=== PATIENT | male | born 1945 | race Caucasian/White ===

== ENCOUNTER 2017-03-26 20:35 | Inpatient (IN) | payer OTHER, MEDICARE ==
[~2017-03-26] VITALS: Ht 182.9 cm; Wt 76.2 kg
[2017-03-26 20:44] VITALS: BP 135/82
--- NOTE | 2017-03-26 20:55 | NUR ---
TO ER BED 11
--- NOTE | 2017-03-26 21:29 | NUR ---
71/M REFERRED BY ONCOLOGIST FOR BLOOD TRANSFUSION, C/O DIZZINESS, LIGHTHEADEDNESS, GENERALIZED WEAKNESS, SOB WITH ACTIVITY. AAOX4, RR 18 EVEN AND UNLABORED, LUNG SOUNDS CLEAR ALL QUADRANTS, BS ACTIVE X4, DENIES PAIN, N/V. PMH METASTATIC PROSTATE CA. NKA.
[2017-03-26 21:50] LABS: BASOPHILS # (AUTO) 0.1 K/uL (0.00-0.22); BASOPHILS % (AUTO) 2.3 % (0.0-2.0); EOSINOPHILS % (AUTO) 0.2 % (0.0-4.0); HEMATOCRIT 23.1 % (36-52); HEMOGLOBIN 7.6 g/dL (12.0-18.0); LYMPHOCYTES # (AUTO) 1.1 K/uL (2.0-11.5); LYMPHOCYTES % (AUTO) 37.7 % (20.5-51.1); MEAN CORPUSCULAR HEMOGLOBIN 31 pg (27-31); MEAN CORPUSCULAR HGB CONC 33 g/dL (33-37); MEAN CORPUSCULAR VOLUME 95 fL (80-94); MONOCYTES # (AUTO) 0.3 K/uL (0.8-1.0); MONOCYTES % (AUTO) 9.1 % (1.7-9.3); NEUTROPHILS # (AUTO) 1.3 K/uL (1.8-7.7); NEUTROPHILS % (AUTO) 50.7 % (42.2-75.2); PLATELET COUNT (AUTO) 155 K/uL (140-450); RED BLOOD CELL COUNT(AUTO) 2.43 MIL/uL (4.20-6.10); RED CELL DISTRIBUTION WIDTH 16.7 % (11.6-13.7); WHITE BLOOD COUNT (AUTO) 2.8 K/uL (4.8-10.8)
[2017-03-26 21:58] LABS: ANION GAP 15.7 (8-16); CARBON DIOXIDE 24.5 mmol/L (21-32); POTASSIUM 5.2 mmol/L (3.5-5.1)
[2017-03-26 22:04] LABS: ALBUMIN 2.9 g/dL (3.4-5.0); TOTAL BILIRUBIN 0.2 mg/dL (0.0-1.0)
--- NOTE | 2017-03-26 23:00 | NUR ---
PT SITTING IN BED, READING. AT BEDSIDE. VSS, WILL CONTINUE TO MONITOR
[2017-03-26] MEDS ORDERED: SODIUM POLYSTYRENE 15 GM/60 ML UDBTL PO ONE (23:35)
[2017-03-26] MEDS ORDERED: ACETAMINOPHEN 325 MG TAB PO PRN (23:55)
[2017-03-26] MEDS ORDERED: HYDROcodone/APAP 7.5/325 MG 1 TAB PO PRN (23:55)
[2017-03-26] MEDS ORDERED: ONDANSETRON 4 MG/2 ML VIAL IVP PRN (23:55)
[2017-03-27] VITALS (10 sets, daily range): BP systolic 85–130; BP diastolic 62–83
--- NOTE | 2017-03-27 | NUR ---
R UPPER CHEST PORTACATH ACCESSED AND APPLIED WITH CVP DRESSING USING STERILE TECHNIQUE, BLOOD RETURN ADEQUATE, FLUSHES WELL, PT TOLERATED WELL.
[2017-03-27 00:20] LABS: PROTHROMBIN TIME 10.4 secs (10.8-13.4)
--- NOTE | 2017-03-27 00:26 | NUR ---
Patient will be admitted to care of DR SIEGEL. Admited to TELE. Will go to room 107B. Belongings list completed. Report to EDY BAIRD.
[2017-03-27] MEDS ORDERED: HYDROmorphone 2 MG TAB PO PRN (00:30)
[2017-03-27 00:31] LABS: CHOL/HDL RATIO 3.3 (1-4.5); FREE T4 (FREE THYROXINE) 0.91 ng/dL (0.76-1.46); MAGNESIUM 1.6 mg/dL (1.8-2.4); PHOSPHORUS 2.7 mg/dL (2.5-4.9); THYROID STIMULATING HORMONE 0.6 uIU/mL (0.34-3.74)
--- NOTE | 2017-03-27 00:35 | NUR ---
ADMITTED THIS 71 YEAR OLD MALE FROM ER PER NAKUL WITH DX OF SYMPTOMATIC ANEMIA, AMBULATED TO BED WITH STANDBY ASSIST, SLIGHT SOB ON EXERTION, MILD WEAKNESS NOTED, ASSESSMENT DONE, VITAL SIGNS STABLE, DENIES ANY PAIN, WITH RT CHEST MEDIPORT, ACCESS BY ER NURSE, DRESSING DRY AND INTACT, PT INCONTINENT DUE TO HX OF PROSTATE CANCER, DIAPER IN PLACE, ORIENTED TO ROOM AND CALL LIGHT, PLAN OF CARE DISCUSSED WITH PT AND AT BEDSIDE, CALL LIGHT WITHIN REACH.
--- NOTE | 2017-03-27 00:50 | NUR ---
DR SARMIENTO ORDERED 15 GM OF KAYEXALATE, MADE AWARE THAT ER GAVE 30GM OF KAYEXALATE ALREADY AT 0004, HE SAID NOT TO GIVE THE 15GM OF KAYEXALATE.
[2017-03-27] MEDS ORDERED: SODIUM POLYSTYRENE 15 GM/60 ML UDBTL PO ONE (01:00)
--- NOTE | 2017-03-27 02:27 | NUR ---
VITAL SIGNS STABLE, 1 UNIT PRBC STARTED WITH EDUCATION PROVIDED, MONITORED CLOSELY FOR ANY REACTION, VITAL SIGNS CHECK PER PROTOCOL, PT IN NO DISTRESS AT THIS TIME, CALL LIGHT WITHIN REACH.
[2017-03-27] MEDS: NACL 0.9% 1,000 ML IV SCH ×2 (02:46→19:53)
--- NOTE | 2017-03-27 04:32 | NUR ---
BLOOD TRANSFUSION DONE, NO REACTION NOTED, VITAL SIGNS STABLE, WILL RESUME IVF, DENIES ANY PAIN, MONITORED CLOSELY.
--- NOTE | 2017-03-27 05:41 | NUR ---
DR SARMIENTO MADE AWARE THAT PT HAD NO BLADDER CONTROL DUE TO PROSTATE CANCER THUS UNABLE TO COLLECT URINE AT THIS TIME, HE SAID IT'S NADIA, MADE AWARE THAT THERE IS NO REPEAT CBC ORDERED AFTER BLOOD TRANSFUSION, HE WILL PUT AN ORDER, ASK PT IF HE NEEDS A DIAPER CHANGE, HE SAID NOT RIGHT NOW, HE WILL CALL IF HE NEEDS A DIAPER CHANGE, MONITORED CLOSELY.
--- NOTE | 2017-03-27 06:44 | NUR ---
PT EASILY AROUSABLE, AM LABS DRAWN VIA RT CHEST MEDIPORT WITH GOOD BLOOD RETURN, RESUMED IVF OF NS AT 50ML/H, DENIES ANY PAIN, NO SOB NOTED, MONITORED CLOSELY.
[2017-03-27 06:49] LABS: BASOPHILS # (AUTO) 0.1 K/uL (0.00-0.22); BASOPHILS % (AUTO) 4.9 % (0.0-2.0); EOSINOPHILS % (AUTO) 0.4 % (0.0-4.0); HEMATOCRIT 22.5 % (36-52); HEMOGLOBIN 7.5 g/dL (12.0-18.0); LYMPHOCYTES # (AUTO) 0.8 K/uL (2.0-11.5); LYMPHOCYTES % (AUTO) 34.2 % (20.5-51.1); MEAN CORPUSCULAR HEMOGLOBIN 31 pg (27-31); MEAN CORPUSCULAR HGB CONC 33 g/dL (33-37); MEAN CORPUSCULAR VOLUME 94 fL (80-94); MONOCYTES # (AUTO) 0.2 K/uL (0.8-1.0); MONOCYTES % (AUTO) 7.3 % (1.7-9.3); NEUTROPHILS # (AUTO) 1.4 K/uL (1.8-7.7); NEUTROPHILS % (AUTO) 53.2 % (42.2-75.2); PLATELET COUNT (AUTO) 141 K/uL (140-450); RED CELL DISTRIBUTION WIDTH 16.6 % (11.6-13.7); WHITE BLOOD COUNT (AUTO) 2.5 K/uL (4.8-10.8)
[2017-03-27 07:04] LABS: ANION GAP 12.1 (8-16); CARBON DIOXIDE 25.7 mmol/L (21-32); CREATININE 1.6 mg/dL (0.7-1.3); POTASSIUM 3.8 mmol/L (3.5-5.1)
--- NOTE | 2017-03-27 07:25 | NUR ---
PT SLEEPING, NO SIGNS OF DISTRESS, REPORT GIVEN TO RN MARTHA FOR CONTINUITY OF CARE.
--- NOTE | 2017-03-27 07:30 | NUR ---
RECEIVED PT ON BED AAOX4. NO SOB NOTED. NO C/O PAIN AT THIS TIME. WITH RT UPPER CHEST MEDIPORT, PATENT AND INTACT. CHEST CLEAR, DIMINISHED AIR ENTRY TO THE BASES. ABDOMEN SOFT, BOWEL SOUNDS PRESENT. INSTRUCTED PT TO CALL FOR ASSISTANCE, CALL LIGHT WITHIN REACH. PT VERBALIZED UNDERSTANDING.
--- NOTE | 2017-03-27 08:30 | NUR ---
ASSISTED PT TO THE BATHROOM WITH MINIMAL HELP. ACTIVITY TOLERATED WELL BY, NO DIZZINESS PER PT. HAD 1 LARGE BM. PT IS INCONTINENT OF BOWEL AND BLADDER (HX PROSTATE CA) BUT PREFERRED TO WEAR PULL UPS FROM HOME, PT WAS ABLE TO CLEAN SELF INSIDE THE BATHROOM.
--- NOTE | 2017-03-27 08:55 | NUR ---
PATIENT HAS BEEN SCREENED AND CATEGORIZED MODERATE NUTRITION RISK. PATIENT WILL BE SEEN WITHIN 3-5 DAYS OF ADMISSION. 03/28/17-03/30/[address]
[2017-03-27] MEDS: DOCUSATE SODIUM 100 MG GELCAP PO SCH ×2 (09:00→20:34)
--- NOTE | 2017-03-27 09:15 | NUR ---
PT WHEELED TO CT DEPT IN STABLE CONDITION FOR CT HEAD W/O CONTRAST.
--- NOTE | 2017-03-27 09:30 | NUR ---
PT BACK FROM CT DEPT IN STABLE CONDITION.
[2017-03-27] MEDS: MAGNESIUM OXIDE 400 MG TAB PO SCH ×2 (09:57→20:19)
--- NOTE | 2017-03-27 10:00 | NUR ---
PT SIGNED RELEASE OF INFO FROM [facility], PT VERBALIZED UNDERSTANDING.
--- NOTE | 2017-03-27 10:30 | NUR ---
[facility] FAXED BACK PT'S PREVIOUS RECORDS. DR. MERCER NOTIFIED.
[2017-03-27 12:26] LABS: HEMATOCRIT 25.3 % (36-52); HEMOGLOBIN 8.2 g/dL (12.0-18.0)
[2017-03-27] MEDS ORDERED: FERRIC GLUCONATE 125 MG in NACL 0.9% 100 ML IV SCH (14:00)
--- NOTE | 2017-03-27 15:35 | NUR ---
PHYSICAL THERAPY ON GOING AT THE BEDSIDE.
--- NOTE | 2017-03-27 19:09 | NUR ---
PT AWAKE, READING BOOK. NO SOB NOTED. NO SIGNS OF PAIN AT THIS TIME. ENDORSED TO NEXT SHIFT NURSE FOR CONTINUITY OF CARE.
--- NOTE | 2017-03-27 19:10 | NUR ---
RECEIVED PT SITTING ON BED READING A BOOK, ORTHOSTATIC VITAL SIGNS TAKEN, VITAL SIGNS STABLE, DENIES ANY PAIN, NO SOB NOTED, RT MEDIPORT ACCESS HEPLOCK, DRESSING DRY AND INTACT, PLAN OF CARE DISCUSS, SAFETY MEASURES IN PLACE, CALL LIGHT WITHIN REACH.
--- NOTE | 2017-03-27 20:30 | NUR ---
DUE MAG-OX TAKEN WITH EDUCATION PROVIDED, PT AMBULATORY TO THE SINK WITH STANDBY ASSIST, ALL NEEDS ATTENDED.
[2017-03-28] VITALS: BP 99/65
--- NOTE | 2017-03-28 | NUR ---
PT SLEEPING, EASILY AROUSABLE, VITAL SIGNS STABLE, DENIES ANY PAIN, NO DISTRESS NOTED, CONTINUE TO MONITOR CLOSELY.
[2017-03-28 04:00] VITALS: BP 101/70
--- NOTE | 2017-03-28 04:20 | NUR ---
PT SLEEPING, EASILY AROUSABLE, VITAL SIGNS STABLE, DENIES ANY PAIN, PT INCONTINENT OF URINE DUE TO HX OF PROSTATE CA, PT AMBULATED TO BR AND ABLE TO CHANGE DIAPER INDEPENDENTLY, NO BM AT THIS TIME, PT VERBALIZED HE FEELS THAT HE IS STARTING TO BE EXPOSED TO IN HOSPITAL CONDITIONS AND HE WANTS TO LEAVE AFTER ECHOCARDIOGRAM IS DONE, WILL ENDORSE TO AM NURSE.
--- NOTE | 2017-03-28 05:29 | NUR ---
PT AWAKE READING A BOOK, A LABS DRAW VIA RT CHEST MEDIPORT WITH GOOD BLOOD RETURN, DENIES PAIN, MONITORED CLOSELY.
--- NOTE | 2017-03-28 07:25 | NUR ---
PT SLEEPING, NO SIGNS OF DISTRESS, REPORT GIVEN TO EDY KAHN FOR CONTINUITY OF CARE.
[2017-03-28 07:30] LABS: HEMATOCRIT 24.5 % (36-52); HEMOGLOBIN 8.1 g/dL (12.0-18.0); MEAN CORPUSCULAR HEMOGLOBIN 31 pg (27-31); MEAN CORPUSCULAR HGB CONC 33 g/dL (33-37); MEAN CORPUSCULAR VOLUME 95 fL (80-94); PLATELET COUNT (AUTO) 163 K/uL (140-450); RED BLOOD CELL COUNT(AUTO) 2.59 MIL/uL (4.20-6.10); RED CELL DISTRIBUTION WIDTH 17.2 % (11.6-13.7); WHITE BLOOD COUNT (AUTO) 3.4 K/uL (4.8-10.8)
--- NOTE | 2017-03-28 07:30 | NUR ---
RECEIVED PT REPORT FROM [employer] SPECIALIST NURSE. PT IS AAOX4. DENIES ANY PAIN, NO SOB NOTED, RT CHEST MEDIPORT ACCESS HEPL[place], DRESSING DRY AND INTACT. MADE PT AWARE OF STOOL SAMPLE NEEDED FOR OCCULT BLOOD TEST. PT STATED HE HAD BM YESTERDAY AND HE PROBABLY WON'T GO TODAY. PT STATED HIS STOOL IS NORMAL BROWN AND NORMAL TEXTURE. PLAN OF CARE DISCUSSED, SAFETY MEASURES IN PLACE, CALL LIGHT WITHIN REACH.
[2017-03-28 08:00] VITALS: BP_SYST 103; BP_SYST 120; BP_SYST 95; BP_DIAS 64; BP_DIAS 68; BP_DIAS 78
[2017-03-28 08:18] LABS: EOSINOPHILS % (MANUAL) 2 % (0-4); LYMPHOCYTES % (MANUAL) 55 % (20-46); MONOCYTES % (MANUAL) 9 % (5-12)
[2017-03-28 08:46] LABS: MAGNESIUM 1.7 mg/dL (1.8-2.4); PHOSPHORUS 3.2 mg/dL (2.5-4.9)
[2017-03-28 08:56] LABS: CARBON DIOXIDE 26.8 mmol/L (21-32); CREATININE 1.7 mg/dL (0.7-1.3); POTASSIUM 3.8 mmol/L (3.5-5.1)
[2017-03-28] MEDS: DOCUSATE SODIUM 100 MG GELCAP PO SCH (09:00)
[2017-03-28] MEDS: MAGNESIUM OXIDE 400 MG TAB PO SCH (09:00)
--- NOTE | 2017-03-28 09:15 | NUR ---
CALLED [facility] DEPT ASKING ABOUT TIME FOR ECHO, MESSAGE LEFT AND WAITING FOR CALL BACK.
--- NOTE | 2017-03-28 09:50 | NUR ---
PT REFUSED ECHO AND WANTS TO GO HOME PATTY. MADE DR MERCER AWARE.
--- NOTE | 2017-03-28 11:15 | NUR ---
PT DISCHARGED PER MD ORDER. MEDIPORT DRESSING REMOVED, DEVICE DISCONNECTED. DENIES ANY PAIN, NAUSEA, OR DIZZINESS. DISCHARGE INSTRUCTIONS GIVEN. MADE PT AWARE THAT HE CAN TALK TO HIS PCP ABOUT DOING ECHO AN OUTPATIENT. PT VERBALIZED UNDERSTANDING. PT LEFT WITH ALL HIS BELONGINGS AND IN STABLE CONDITION.
== END 2017-03-28 11:15 | disposition home or self-care (01) | DRG 808 ==
LOC: MED 20:35 → MTU 23:53
PROVIDERS: ADMIT Family Medicine; ATTEND Family Medicine
PROC: 30233N1 Transfusion of Nonautologous Red Blood Cells into Peripheral Vein, Percutaneous Approach (ICD-10-PCS; principal; 2017-03-27)
DX: D61.810 Antineoplastic chemotherapy induced pancytopenia (principal); N17.0 Acute kidney failure with tubular necrosis; E87.2 Acidosis; D64.81 Anemia due to antineoplastic chemotherapy; E83.42 Hypomagnesemia; E87.5 Hyperkalemia; G90.9 Disorder of the autonomic nervous system, unspecified; C61 Malignant neoplasm of prostate; K44.9 Diaphragmatic hernia without obstruction or gangrene; D63.8 Anemia in other chronic diseases classified elsewhere; I71.4 Abdominal aortic aneurysm, without rupture; N28.1 Cyst of kidney, acquired; J84.10 Pulmonary fibrosis, unspecified
CPT/HCPCS: 36415; 70450; 71045; 80048; 80053; 82140; 82150; 82607; 82728; 82746; 83036; 83540; 83605; 83690; 83735; 83880; 84100; 84439; 84443; 84484; 85018; 85025; 85045; 85610; 85730; 86886; 86900; 86901; 86920; 87081; 93005; 99285; J2916; J7030; P9016; Q0092